=== PATIENT | female | born 1985 | race Caucasian/White ===

== ENCOUNTER 2020-09-20 02:06 | Inpatient (IN) | payer BC ==
[2020-09-19] MEDS: IV NORMAL SALINE 1000ML BAG 1,000 ML IV SCH (14:00)
[~2020-09-20] VITALS: Ht 167.6 cm; Wt 84.7 kg
[2020-09-20 02:41] LABS: BASO # 0.1 x10^3/uL (0.0-0.2); BASO % 1 % (0-3); EOS # 0.1 x10^3/uL (0.0-0.7); EOS % 1 % (0-3); HEMATOCRIT 38.2 % (36.0-47.0); HEMOGLOBIN 13.1 g/dL (12.0-15.5); LYMPH # 2.2 x10^3/uL (1.0-4.8); LYMPH % 15 % (24-48); MEAN CORPUSCULAR HEMOGLOBIN 33 pg (25-35); MEAN CORPUSCULAR HGB CONC 34 g/dL (31-37); MEAN CORPUSCULAR VOLUME 97 fL (79-100); MONO # 0.9 x10^3/uL (0.0-1.1); MONO % 6 % (0-9); NEUT # 11.2 x10^3/uL (1.8-7.7); NEUT % 78 % (31-73); PLATELET COUNT 255 x10^3/uL (140-400); RED BLOOD COUNT 3.93 x10^6/uL (3.50-5.40); RED CELL DISTRIBUTION WIDTH 12.4 % (11.5-14.5); WHITE BLOOD COUNT 14.5 x10^3/uL (4.0-11.0)
[2020-09-20 02:58] LABS: CALCIUM 8.5 mg/dL (8.5-10.1); CREATININE 0.8 mg/dL (0.6-1.0); GFR 81.6; POTASSIUM 3.2 mmol/L (3.5-5.1)
[2020-09-20] MEDS ORDERED: fentaNYL PF VIAL 100 MCG/2 ML VIAL IV ONE (03:00)
[2020-09-20] MEDS ORDERED: IV NORMAL SALINE 1000ML BAG 1,000 ML IV ONE (03:00)
[2020-09-20] MEDS ORDERED: NEOMY/BACITR/POLYMYXIN OINT PACKET. TP ONE (03:00)
[2020-09-20 03:04] LABS: ALBUMIN 4.3 g/dL (3.4-5.0); ALBUMIN/GLOBULIN RATIO 1.3 (1.0-1.7); MAGNESIUM 1.8 mg/dL (1.8-2.4); TOTAL BILIRUBIN 0.2 mg/dL (0.2-1.0); TOTAL PROTEIN 7.6 g/dL (6.4-8.2)
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
[2020-09-20] MEDS ORDERED: CONTRAST GIVEN. MC PRN (03:15)
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
[2020-09-20] MEDS ORDERED: IOHEXOL 300 MG/ML 100ML VIAL. IV ONE (03:30)
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
[2020-09-20] MEDS ORDERED: ONDANSETRON PF 4 MG/2 ML VIAL. IV PRN (03:45)
[2020-09-20 04:03] LABS: BILIRUBIN,URINE NEGATIVE (NEG); CLARITY,URINE CLEAR; COLOR,URINE YELLOW; NITRITE,URINE NEGATIVE (NEG); PH,URINE 5.5 (<5.0-8.0); PROTEIN,URINE NEGATIVE (NEG-TRACE); UROBILINOGEN,URINE 0.2 mg/dL (0.2 mg/dL)
[2020-09-20] MEDS: fentaNYL PF VIAL 100 MCG/2 ML VIAL IV PRN ×2 (04:47→06:41)
[2020-09-20 04:50] LABS: BACTERIA,URINE FEW /HPF (0-FEW)
[2020-09-20 05:00] VITALS: BP 126/79
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
[2020-09-20] MEDS: IV NORMAL SALINE 1000ML BAG 1,000 ML IV SCH ×2 (05:33→17:07)
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
[2020-09-20 07:00] VITALS: BP 103/54
[2020-09-20] MEDS: fentaNYL PF VIAL 100 MCG/2 ML VIAL IVP PRN ×6 (08:45→20:16)
[2020-09-20] MEDS: HYDROcodone/APAP 5/325MG 1 TAB TABLET PO PRN ×3 (08:46→20:15)
[2020-09-20 11:00] VITALS: BP 110/68
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
[2020-09-20] MEDS ORDERED: diphenhydrAMINE 50 MG/ML VIAL IVP PRN (14:15)
[2020-09-20] MEDS ORDERED: cloNIDine HCL 0.1 MG TABLET PO PRN (14:15)
[2020-09-20] MEDS ORDERED: POTASSIUM CHLORIDE 20 MEQ TABLET.ER. PO ONE (14:15)
[2020-09-20] MEDS ORDERED: HALOPERIDOL LACTATE 5 MG/ML VIAL. IVP PRN (14:15)
[2020-09-20 15:00] VITALS: BP 142/82
[2020-09-20 15:19] LABS: BARBITURATES NEG (NEG); BENZODIAZEPINES NEG (NEG); CANNABINOIDS NEG (NEG); COCAINE NEG (NEG); METHADONE NEG (NEG); OPIATES POS (NEG); PHENCYCLIDINE NEG (NEG)
[2020-09-20 15:20] LABS: AMPHETAMINE/METHAMPHETAMINE NEG (NEG)
[2020-09-20] MEDS: MULTIVIT INFUSN,ADULT 4,VIT K 10 ML, THIAMINE INJ 100 MG, FOLIC ACID INJ 1 MG in IV NOR... IV SCH (17:09)
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
[2020-09-20 19:00] VITALS: BP 123/81
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
[2020-09-20 23:00] VITALS: BP 108/60
[2020-09-21] MEDS: HYDROcodone/APAP 5/325MG 1 TAB TABLET PO PRN ×4 (00:19→23:41)
[2020-09-21 03:00] VITALS: BP 106/53
[2020-09-21] MEDS: fentaNYL PF VIAL 100 MCG/2 ML VIAL IVP PRN ×6 (05:39→13:49)
[2020-09-21 06:12] LABS: BASO % 1 % (0-3); EOS # 0.1 x10^3/uL (0.0-0.7); EOS % 2 % (0-3); HEMATOCRIT 33.2 % (36.0-47.0); HEMOGLOBIN 11.2 g/dL (12.0-15.5); LYMPH # 2.3 x10^3/uL (1.0-4.8); LYMPH % 46 % (24-48); MEAN CORPUSCULAR HEMOGLOBIN 34 pg (25-35); MEAN CORPUSCULAR HGB CONC 34 g/dL (31-37); MEAN CORPUSCULAR VOLUME 99 fL (79-100); MONO # 0.6 x10^3/uL (0.0-1.1); MONO % 11 % (0-9); NEUT % 40 % (31-73); PLATELET COUNT 182 x10^3/uL (140-400); RED BLOOD COUNT 3.35 x10^6/uL (3.50-5.40); RED CELL DISTRIBUTION WIDTH 12.8 % (11.5-14.5)
[2020-09-21 06:33] LABS: ALBUMIN 3.1 g/dL (3.4-5.0); ALBUMIN/GLOBULIN RATIO 1.1 (1.0-1.7); CALCIUM 8.3 mg/dL (8.5-10.1); CREATININE 0.9 mg/dL (0.6-1.0); GFR 71.3; POTASSIUM 3.9 mmol/L (3.5-5.1); TOTAL BILIRUBIN 0.4 mg/dL (0.2-1.0); TOTAL PROTEIN 5.9 g/dL (6.4-8.2)
[2020-09-21 07:00] VITALS: BP 132/73
[2020-09-21] MEDS ORDERED: LIDOCAINE 2% PF 5 ML VIAL. ONE (07:37)
[2020-09-21] MEDS ORDERED: MIDAZOLAM HCL/PF 2 MG/2 ML VIAL. ONE (07:37)
[2020-09-21] MEDS ORDERED: PROPOFOL 10 MG/ML (20ML) VIAL. IV ONE (07:37)
[2020-09-21] MEDS ORDERED: fentaNYL PF VIAL 100 MCG/2 ML VIAL ONE ×3 (07:37→10:01)
[2020-09-21] MEDS ORDERED: SEVOFLURANE 31 TO 60 MINUTES. IH ONE (07:48)
--- NOTE | 2020-09-21 08:02 | NUR ---
pt left for surgery at approx 0800.
[2020-09-21] MEDS ORDERED: MORPHINE SULFATE 2 MG/ML VIAL. IVP PRN (08:15)
[2020-09-21] MEDS ORDERED: IV RINGERS,LACTATED 1000ML 1,000 ML IV SCH (08:15)
[2020-09-21] MEDS ORDERED: PROCHLORPERAZINE 10 MG/2 ML VIAL. IVP PRN (08:15)
[2020-09-21] MEDS ORDERED: HYDROmorphone 2 MG/ML VIAL IVP PRN (08:15)
[2020-09-21] MEDS ORDERED: fentaNYL PF VIAL 100 MCG/2 ML VIAL IVP PRN (08:30)
[2020-09-21] MEDS ORDERED: DEXTROSE 50% 25 GM / 50ML DISP.SYRIN. IV PRN (08:30)
[2020-09-21] MEDS ORDERED: ONDANSETRON PF 4 MG/2 ML VIAL. ONE (08:30)
[2020-09-21] MEDS ORDERED: POLYETHYLENE GLYCOL 3350 17 GM PACKET. PO PRN (08:30)
[2020-09-21] MEDS ORDERED: DEXAMETHASONE SOD PHOS 4 MG/ML VIAL ONE (08:30)
[2020-09-21] MEDS ORDERED: ONDANSETRON PF 4 MG/2 ML VIAL. IVP PRN (08:30)
[2020-09-21] MEDS ORDERED: SEVOFLURANE 61 TO 120 MINUTES. IH ONE ×2 (08:46→09:22)
[2020-09-21] MEDS ORDERED: MULTIVITAMIN with MINERAL TABLET. PO SCH (09:00)
--- NOTE | 2020-09-21 09:35 | PDOC4 ---
OPERATIVE NOTE: September 21, 2020 Procedure performed Open reduction internal fixation right humerus Postoperative diagnosis Midshaft right humerus fracture Surgeon Hector Cleaning DO Anesthesia General Position Supine Implants Synthes 4.5 mm narrow large fragment set and plate Complications None Blood loss Less than 100 mL Description of procedure Patient seen and evaluated in the postoperative holding area site was marked consent was verified. Department of anesthesia administered perioperative antibiotics and she was wheeled back to the operating room. Department of anesthesia administered general anesthetic and maintain control of the airway. Patient was then positioned appropriately for the surgery with the arm on a hand table. Sterile prep and drape was performed in typical fashion. A 15 cm incision was made over the anterolateral upper arm. Soft tissue dissection was carried out sharply through the fat and down to the fascia. The fascia was split. The biceps was retracted medially and the brachialis was split in its midportion allowing access to the shaft of the humerus. Copious irrigation was run through the wound to remove fracture hematoma. Bone edges were curetted. At this point a direct reduction was performed and because of the transverse nature of the fracture interfragmentary compression was not used. At this point a 7 hole 4.5 mm narrow plate was placed on the fracture and using typical compression AO technique the plate was fixed to the bone using 3 bicortical screws proximally and distally. Fluoroscopy images in 2 planes revealed near anatomic reduction of the fracture with good fixation. Copious irrigation was run through the wound followed by a layered closure. Large bulky dressing and sling were applied. Anesthesia was reversed and the patient was transferred to postop in apparent stable condition. Disposition To PACU stable Prognosis Good ASUNCION MCCORD DO Sep 21, 2020 09:35
--- NOTE | 2020-09-21 10:50 | PDOC ---
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 14:57; Start 09/20/20 at 14:15; Stop 09/20/20 at 14:17; Status DC Potassium Chloride (Klor-Con) 20 meq DAILYWBKFT PO ; Start 09/21/20 at 08:00 Cefazolin Sodium/ Dextrose 50 ml @ 100 mls/hr 1X ONCE IV Last administered on 09/21/20at 08:25; Start 09/21/20 at 06:00; Stop 09/21/20 at 06:29; Status DC Propofol (Diprivan) 200 mg STK-MED ONCE IV ; Start 09/21/20 at 07:37; Stop 09/21/20 at 07:37; Status DC Lidocaine HCl (Lidocaine Pf 2% Vial) 5 ml STK-MED ONCE .ROUTE ; Start 09/21/20 at 07:37; Stop 09/21/20 at 07:37; Status DC Midazolam HCl (Versed) 2 mg STK-MED ONCE .ROUTE ; Start 09/21/20 at 07:37; Stop 09/21/20 at 07:38; Status DC Fentanyl Citrate (Fentanyl 2ml Vial) 100 mcg STK-MED ONCE .ROUTE ; Start 09/21/20 at 07:37; Stop 09/21/20 at 07:38; Status DC Sevoflurane (Ultane) 30 ml STK-MED ONCE IH ; Start 09/21/20 at 07:48; Stop 09/21/20 at 07:49; Status DC Fentanyl Citrate (Fentanyl 2ml Vial) 25 mcg PRN Q5MIN PRN IVP MILD PAIN 1-3; Start 09/21/20 at 08:15; Stop 09/21/20 at 18:00 Fentanyl Citrate (Fentanyl 2ml Vial) 50 mcg PRN Q5MIN PRN IVP MODERATE PAIN 4-6 Last administered on 09/21/20at 10:13; Start 09/21/20 at 08:15; Stop 09/21/20 at 18:00 Morphine Sulfate (Morphine Sulfate) 1 mg PRN Q10MIN PRN IVP SEVERE PAIN 7-10; Start 09/21/20 at 08:15; Stop 09/21/20 at 18:00 Ringer's Solution 1,000 ml @ 30 mls/hr Q24H IV ; Start 09/21/20 at 08:15; Stop 09/21/20 at 20:14 Hydromorphone HCl (Dilaudid) 0.5 mg PRN Q10MIN PRN IVP SEVERE PAIN 7-10, 2nd CHOICE; Start 09/21/20 at 08:15; Stop 09/21/20 at 18:00 Prochlorperazine Edisylate (Compazine) 5 mg PACU PRN PRN IVP NAUSEA, MRX1; Start 09/21/20 at 08:15; Stop 09/21/20 at 18:00 Oxycodone HCl (Roxicodone) 5 mg PRN Q3HRS PRN PO MODERATE PAIN 4-6; Start 09/21/20 at 08:30 Fentanyl Citrate (Fentanyl 2ml Vial) 25 mcg PRN Q1HR PRN IVP SEVERE PAIN 7-10; Start 09/21/20 at 08:30 Multivitamins (Thera M Plus) 1 tab DAILY PO ; Start 09/21/20 at 09:00; Status UNV Senna/Docusate Sodium (Senna Plus) 1 tab DAILY PO ; Start 09/21/20 at 09:00 Polyethylene Glycol (miraLAX PACKET) 17 gm PRN DAILY PRN PO CONSTIPATION; Start 09/21/20 at 08:30 Ondansetron HCl (Zofran) 4 mg PRN Q4HRS PRN IVP NAUSEA/VOMITING; Start 09/21/20 at 08:30 Magnesium Hydroxide (Milk Of Magnesia) 2,400 mg 1X PRN PRN PO CONSTIPATION; Start 09/22/20 at 06:00; Stop 09/23/20 at 05:59 Bisacodyl (Dulcolax Supp) 10 mg 1X PRN PRN MO CONSTIPATION; Start 09/22/20 at 16:00; Stop 09/23/20 at 15:59 Dextrose (Dextrose 50%-Water Syringe) 12.5 gm PRN Q15MIN PRN IV SEE COMMENTS; Start 09/21/20 at 08:30 Cefazolin Sodium (Ancef) 1 gm Q6H IVP ; Start 09/21/20 at 12:00; Stop 09/22/20 at 00:01 Dexamethasone Sodium Phosphate (Decadron) 4 mg STK-MED ONCE .ROUTE ; Start 09/21/20 at 08:30; Stop 09/21/20 at 08:31; Status DC Fentanyl Citrate (Fentanyl 2ml Vial) 100 mcg STK-MED ONCE .ROUTE ; Start 09/21/20 at 08:35; Stop 09/21/20 at 08:41; Status DC Ondansetron HCl (Zofran) 4 mg STK-MED ONCE .ROUTE ; Start 09/21/20 at 08:30; Stop 09/21/20 at 08:43; Status DC Sevoflurane (Ultane) 60 ml STK-MED ONCE IH ; Start 09/21/20 at 08:46; Stop 09/21/20 at 08:47; Status DC Sevoflurane (Ultane) 60 ml STK-MED ONCE IH ; Start 09/21/20 at 09:22; Stop 09/21/20 at 09:22; Status DC Fentanyl Citrate (Fentanyl 2ml Vial) 100 mcg STK-MED ONCE .ROUTE ; Start 09/21/20 at 10:01; Stop 09/21/20 at 10:02; Status DC Active Scripts Active Reported No Known Medications Prior To Admisstion (Info) Each 1 Each DAILY Vitals/I & O Vital Sign - Last 24 Hours 09/20/20 09/20/20 09/20/20 09/20/20 11:00 11:16 12:33 12:37 Temp 98.7 98.7 Pulse 89 Resp 18 B/P (MAP) 110/68 (82) Pulse Ox 95 95 O2 Delivery Room Air Room Air Room Air Room Air 09/20/20 09/20/20 09/20/20 09/20/20 13:07 13:07 15:00 15:16 Temp 98.7 98.7 Pulse 73 Resp 18 18 B/P (MAP) 142/82 (102) Pulse Ox 95 95 97 95 O2 Delivery Room Air Room Air Room Air Room Air 09/20/20 09/20/20 09/20/20 09/20/20 15:46 17:17 17:47 19:00 Temp 97.6 97.6 Pulse 67 Resp 16 B/P (MAP) 123/81 (95) Pulse Ox 95 95 95 97 O2 Delivery Room Air Room Air Room Air Room Air 09/20/20 09/20/20 09/20/20 09/20/20 20:15 20:15 20:16 20:45 Resp 18 18 18 Pulse Ox 95 95 95 O2 Delivery Room Air Room Air Room Air Room Air 09/20/20 09/20/20 09/21/20 09/21/20 20:45 23:00 00:19 00:49 Temp 99.3 99.3 Pulse 70 Resp 18 16 18 B/P (MAP) 108/60 (76) Pulse Ox 95 96 96 O2 Delivery Room Air Room Air Room Air Room Air 09/21/20 09/21/20 09/21/20 09/21/20 03:00 05:39 06:09 07:00 Temp 98.3 98.8 98.3 98.8 Pulse 65 72 Resp 16 18 18 B/P (MAP) 106/53 (70) 132/73 (92) Pulse Ox 96 96 96 96 O2 Delivery Room Air Room Air Room Air Room Air 09/21/20 09/21/20 09/21/20 09/21/20 07:58 08:00 08:05 09:43 Temp 99.5 100.4 99.5 100.4 Pulse 75 87 Resp 20 20 B/P (MAP) 131/77 161/93 Pulse Ox 96 94 100 O2 Delivery Room Air Room Air Room Air Simple Mask O2 Flow Rate 09/21/20 09/21/20 09/21/20 09/21/20 09:43 10:00 10:06 10:13 Pulse 82 Resp 20 20 16 B/P (MAP) 175/113 Pulse Ox 92 100 97 O2 Delivery Room Air Room Air Simple Mask Simple Mask O2 Flow Rate 10.0 5.0 09/21/20 10:15 Pulse 86 Resp 20 B/P (MAP) 149/86 Pulse Ox 97 O2 Delivery Room Air Intake and Output 09/20/20 09/20/20 09/21/20 15:00 23:00 07:00 Intake Total 100 ml 2050 ml Output Total 450 ml 450 ml 400 ml Balance -450 ml -350 ml 1650 ml Justicifation of Admission Dx: Justifications for Admission: Justification of Admission Dx: Yes Fracture: Fracture RIDDHI CARPENTER MD Sep 21, 2020 10:49
[2020-09-21] MEDS: SENNOSIDES/DOCUSATE 8.6/50MG TABLET. PO SCH (10:51)
[2020-09-21] MEDS: POTASSIUM CHLORIDE 20 MEQ TABLET.ER. PO SCH (10:51)
[2020-09-21] MEDS: MULTIVIT INFUSN,ADULT 4,VIT K 10 ML, THIAMINE INJ 100 MG, FOLIC ACID INJ 1 MG in IV NOR... IV SCH (10:54)
[2020-09-21 11:00] VITALS: BP 142/98
[2020-09-21] MEDS: ceFAZolin SODIUM IV Push 1 GM VIAL. IVP SCH ×3 (11:49→23:41)
--- NOTE | 2020-09-21 14:42 | NUR ---
THIS NURSE PULLED PAIN PILL TO GIVE THE PT ALONG WITH SENNA AND POTASSIUM AT APPROX 1051. HYDROCODONE GIVEN AT APPROX 1051 ALONG WITH THE OTHER TWO PILLS. PILL DID NOT SAVE AFTER SCAN. CHARGE NURSE NOTIFIED AND PHARMACY NOTIFIED WELL.
[2020-09-21 15:00] VITALS: BP 143/77
[2020-09-21] MEDS: oxyCODONE IR 5 MG TABLET PO PRN ×2 (15:49→20:15)
--- NOTE | 2020-09-21 18:14 | NUR ---
pt returned to the floor following surgery and was settled. this nurse noted after dose of fentanyl and then starting the banana bag that pt had turned extremely red and had complained of intense itching. hives noted to back. Dr Collins notified. fluids stopped and orders discontinued.
[2020-09-21 19:55] VITALS: BP 113/89
[2020-09-21 23:31] VITALS: BP 134/91
[2020-09-22 02:58] VITALS: BP 132/87
[2020-09-22] MEDS: HYDROcodone/APAP 5/325MG 1 TAB TABLET PO PRN ×2 (05:51→11:52)
[2020-09-22] MEDS ORDERED: MAGNESIUM HYDROXIDE 2,400 MG/30 ML ORAL.SUSP. PO PRN (06:00)
[2020-09-22 06:45] LABS: BASO % 0 % (0-3); EOS # 0.1 x10^3/uL (0.0-0.7); EOS % 1 % (0-3); HEMOGLOBIN 12.3 g/dL (12.0-15.5); LYMPH # 2.3 x10^3/uL (1.0-4.8); LYMPH % 22 % (24-48); MEAN CORPUSCULAR HEMOGLOBIN 34 pg (25-35); MEAN CORPUSCULAR HGB CONC 34 g/dL (31-37); MEAN CORPUSCULAR VOLUME 98 fL (79-100); MONO # 0.9 x10^3/uL (0.0-1.1); MONO % 9 % (0-9); NEUT # 7.4 x10^3/uL (1.8-7.7); NEUT % 69 % (31-73); PLATELET COUNT 214 x10^3/uL (140-400); RED BLOOD COUNT 3.67 x10^6/uL (3.50-5.40); RED CELL DISTRIBUTION WIDTH 12.5 % (11.5-14.5); WHITE BLOOD COUNT 10.7 x10^3/uL (4.0-11.0)
[2020-09-22 07:04] VITALS: BP 129/78
[2020-09-22 07:16] LABS: ALBUMIN 3.8 g/dL (3.4-5.0); ALBUMIN/GLOBULIN RATIO 1.1 (1.0-1.7); CALCIUM 9.3 mg/dL (8.5-10.1); CREATININE 0.8 mg/dL (0.6-1.0); GFR 81.6; POTASSIUM 3.5 mmol/L (3.5-5.1); TOTAL BILIRUBIN 0.4 mg/dL (0.2-1.0); TOTAL PROTEIN 7.2 g/dL (6.4-8.2)
[2020-09-22] MEDS: POTASSIUM CHLORIDE 20 MEQ TABLET.ER. PO SCH (08:26)
[2020-09-22] MEDS: SENNOSIDES/DOCUSATE 8.6/50MG TABLET. PO SCH (08:26)
[2020-09-22] MEDS ORDERED: FOLIC ACID 1 MG TABLET. PO SCH (09:00)
[2020-09-22] MEDS ORDERED: MULTIVITAMIN with MINERAL TABLET. PO SCH (09:00)
[2020-09-22] MEDS ORDERED: THIAMINE 100 MG TABLET. PO SCH (09:00)
[2020-09-22 10:39] VITALS: BP 136/84
--- NOTE | 2020-09-22 11:16 | NUR ---
SW following. Discussed with RN, pt from home, room air, regular diet, COVID-19 negative. Pt had surgery. OT recommending home. SW awaiting confirmation from Dr. Villarreal to determine if pt needs to be seen by the PAT team. RN advised no other SW needs. SW will continue to follow.
[2020-09-22] MEDS ORDERED: POLY17PO52 PO (13:13)
[2020-09-22] MEDS ORDERED: HYDR-2761 PO (13:13)
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
[2020-09-22 14:35] VITALS: BP 101/83
--- NOTE | 2020-09-22 14:44 | DISCH ---
DISCHARGE INSTRUCTIONS Condition on Discharge Condition on Discharge: Stable Activity After Discharge Activity Instructions for Disc: Other ROM activity Bathing Instructions: Shower-keep dressing dry, No Tub Bath until see Lifting Instructions after Dis: No heavy lifting, No pulling or pushing Driving Instructions after Dis: Do not drive today Diet after Discharge Diet after Discharge: Regular Contacting the after DC Call your doctor for: Fever greater than 100 Follow-Up Follow up with: Dr. Napier call for appt in 2 wks [phone] ASUNCION DILLON DO Sep 22, 2020 14:44
--- NOTE | 2020-09-22 15:45 | NUR ---
Pt. discharged to home, rx sent to pharmacy. Verbalized understanding of discharge instructions. LAKESHIA marint in sling, CDI.
[2020-09-22] MEDS ORDERED: BISACODYL 10 MG SUPP.RECT. PR PRN (16:00)
== END 2020-09-22 15:00 | disposition home or self-care (01) | DRG 494 ==
LOC: ER 02:06 → 2 NORTH 04:11 → 4 NORTH 09-21 20:03
PROVIDERS: ADMIT Internal Medicine; ATTEND Internal Medicine
PROC: 0PSF04Z Reposition Right Humeral Shaft with Internal Fixation Device, Open Approach (ICD-10-PCS; principal; 2020-09-21 08:00)
DX: S42.391A Other fracture of shaft of right humerus, initial encounter for closed fracture (principal); Z20.822 Contact with and (suspected) exposure to COVID-19; F10.120 Alcohol abuse with intoxication, uncomplicated; V86.55XA Driver of 3- or 4- wheeled all-terrain vehicle (ATV) injured in nontraffic accident, initial encounter; F17.210 Nicotine dependence, cigarettes, uncomplicated; N20.0 Calculus of kidney; Z82.49 Family history of ischemic heart disease and other diseases of the circulatory system; Z82.5 Family history of asthma and other chronic lower respiratory diseases; K76.0 Fatty (change of) liver, not elsewhere classified; Y93.89 Activity, other specified; Y92.89 Other specified places as the place of occurrence of the external cause; Y99.8 Other external cause status
CPT/HCPCS: 36415; 36569; 70450; 71260; 72125; 73060; 73080; 74177; 76000; 80053; 80307; 81001; 81025; 83735; 85025; 86705; 86709; 86803; 87340; 87426; 96361; 96365; 96375; A4322; A4565; A4930; A6253; A6402; A6450; C1713; G0480; J0690; J1100; J2250; J2405; J2704; J3010; J3411; J3490; J7030; Q9967; U0003; U0005; 97110-GP; 97535-GO; 99285-25; G0378